=== PATIENT | female | born 1975 | race Caucasian/White ===

== ENCOUNTER 2018-05-03 07:03 | Outpatient (CLI) | payer BC ==
--- NOTE | 2018-05-03 09:28 | Ultrasound Report ---
Procedure Date: 05/03/2018 Accession Number: [id number] / [id number] Procedure: US - Abdomen Complete CPT Code: FULL RESULT: EXAM: Abdomen Complete DATE: 05/03/2018 8:26 AM CLINICAL HISTORY: UPPER ABDOMINAL PAIN COMPARISON: None. TECHNIQUE: Real-time scanning was performed with static images obtained. FINDINGS: Liver: Normal in size and echotexture. 14.4 cm. Main portal vein flow: Hepatopetal. Gallbladder: The patient is status post cholecystectomy. Biliary System: Common bile duct measures 7 mm. No intrahepatic or extrahepatic ductal dilatation. Pancreas: Visualized portion is unremarkable. Kidneys: Right: 10.0 cm longitudinally. Normal. No contour-deforming mass, stones, or hydronephrosis. Left: 9.9 cm longitudinally. Normal. No contour-deforming mass, stones, or hydronephrosis. Spleen: 9.0 cm. Normal in size and echotexture. Aorta and Inferior Vena Cava: Unremarkable. IMPRESSION: Changes of cholecystectomy. Otherwise, normal abdominal ultrasound. RADIA
== END 2018-05-03 07:04 | disposition home or self-care (01) ==
LOC: DI 07:03
PROVIDERS: ATTEND Specialist
DX: R10.10 Upper abdominal pain, unspecified (principal); Z90.49 Acquired absence of other specified parts of digestive tract
CPT/HCPCS: 76700

== ENCOUNTER 2018-06-22 08:00 | Outpatient (CLI) | payer BC | END 2018-06-22 23:59 | LOC: LAB.R 08:00 | PROVIDERS: ATTEND Obstetrics & Gynecology | DX: N76.0 Acute vaginitis (principal) | CPT/HCPCS: 87480; 87510; 87660 ==

== ENCOUNTER 2018-08-24 08:00 | Outpatient (CLI) | payer BC | END 2018-08-24 23:59 | disposition home or self-care (01) | LOC: LAB.R 08:00 | PROVIDERS: ATTEND Obstetrics & Gynecology | DX: N76.0 Acute vaginitis (principal) | CPT/HCPCS: 87480; 87491; 87510; 87591; 87660 ==

== ENCOUNTER 2018-09-18 11:38 | Outpatient (CLI) | payer BC | END 2018-09-18 11:39 | disposition home or self-care (01) | LOC: LAB.R 11:38 | PROVIDERS: ATTEND Obstetrics & Gynecology | DX: N77.1 Vaginitis, vulvitis and vulvovaginitis in diseases classified elsewhere (principal) | CPT/HCPCS: 87480; 87510; 87660 ==

== ENCOUNTER 2018-09-20 07:55 | Outpatient (CLI) | payer BC ==
[2018-09-20 12:51] LABS: HB2 TOTAL 14.8 g/dL; HEMOGLOBIN A1C 0.49 g/dL; HEMOGLOBIN A1C % 5.2 % (4.6-6.2)
[2018-09-20 12:59] LABS: THYROID STIMULATING HORMONE 1.37 uIU/mL (0.34-5.60)
[2018-09-20 13:01] LABS: FREE T4 (FREE THYROXINE) 0.74 ng/dL (0.58-1.64)
== END 2018-09-20 07:56 | disposition home or self-care (01) ==
LOC: LAB.N 07:55
PROVIDERS: ATTEND Obstetrics & Gynecology
DX: N77.1 Vaginitis, vulvitis and vulvovaginitis in diseases classified elsewhere (principal)
CPT/HCPCS: 36415; 82947; 83036; 84439; 84443

== ENCOUNTER 2018-11-06 08:00 | Outpatient (CLI) | payer BC | END 2018-11-06 23:59 | disposition home or self-care (01) | LOC: LAB.R 08:00 | PROVIDERS: ATTEND Obstetrics & Gynecology | DX: N77.1 Vaginitis, vulvitis and vulvovaginitis in diseases classified elsewhere (principal) | CPT/HCPCS: 87480; 87510; 87660 ==

== ENCOUNTER 2019-01-19 07:10 | Outpatient (CLI) | payer BC ==
--- NOTE | 2019-01-24 09:52 | Ultrasound Report ---
Reason: UNSPECIFIED ABDOMINAL PAIN Procedure Date: 01/19/2019 Accession Number: [id number] / [id number] Procedure: US - Abdomen Complete CPT Code: FULL RESULT: EXAM: ABDOMEN ULTRASOUND EXAM DATE: 01/19/2019 08:01 AM. CLINICAL HISTORY: Chronic abdominal pain x 9 years. COMPARISON: ABDOMEN COMPLETE 05/03/2018 7:29 AM. TECHNIQUE: Real-time scanning was performed with static images obtained. FINDINGS: Liver: Liver parenchyma is heterogeneous and mildly hyperechoic. No discrete liver masses or intrahepatic bile duct dilation. However, evaluation for masses is limited secondary to the echogenicity. Right liver measures 15.3 cm. Main portal vein flow: Hepatopetal. Gallbladder: Surgically absent. Biliary System: Common bile duct measures 7 mm. Mildly prominent common bile duct. No common bile duct stone. No intrahepatic bile duct dilation. Pancreas: Echogenic but otherwise unremarkable. No mass, calcification, ductal dilation or atrophy. Kidneys: Right: 10 cm longitudinally. No mass, stones or hydronephrosis. Mild pelviectasis. Normal echotexture. Left: 10 cm longitudinally. No mass, stones or hydronephrosis. Mild pelviectasis. Normal echotexture. Spleen: 8.4 cm. Normal in size and echotexture. Aorta and Inferior Vena Cava: Unremarkable. Other: None. IMPRESSION: 1. Mildly echogenic fatty liver. No mass. 3. Surgically absent gallbladder. Mildly prominent common bile duct without evidence of a stone or mass. No intrahepatic bile duct dilation. 3. Echogenic but otherwise unremarkable pancreas. RADIA
== END 2019-01-19 07:11 | disposition home or self-care (01) ==
LOC: DI 07:10
PROVIDERS: ATTEND Specialist
DX: K76.0 Fatty (change of) liver, not elsewhere classified (principal); Z90.49 Acquired absence of other specified parts of digestive tract; R10.9 Unspecified abdominal pain
CPT/HCPCS: 76700

== ENCOUNTER 2019-10-17 15:52 | Emergency (ER) | payer BC, MEDICAID ==
--- NOTE | 2019-10-17 16:25 | ED Physician Documentation ---
PD HPI ABD PAIN - Stated complaint Stated Complaint: ABD/BACK PX - Chief complaint Chief Complaint: Abd Pain - History obtained from History obtained from: Patient - History of Present Illness Timing - onset: Other (For about 10 years she is had waxing and waning left- sided abdominal pain radiating to the low mid back. It sounds like she is had fairly complete work-ups for this with some interesting findings. Ultrasound showed fatty liver. Is unclear if labs were abnormal. Remotely she had an upper endoscopy that was negative. Maybe 8 months ago per her she had a CAT scan done in [place], formal results are not available currently but per her description she may have had pelvic free fluid for which she followed up with her seasonal retail merchandiser who felt it was normal variant may be. Over the last 3 days this pain is worse than normal, it is fairly constant sharp, radiating from the low to mid abdomen to the mid back. Ever since she had her gallbladder out she often has loose stools, Does have some nausea. Declines pain medication on initial evaluation. Menses have become irregular and she thinks she is going through menopause.) Review of Systems Ten Systems: 10 systems reviewed and negative Constitutional: denies: Fever, Chills Cardiac: denies: Chest pain / pressure, Palpitations Respiratory: denies: Dyspnea, Cough GI: reports: Abdominal Pain, Nausea, Other (bloated). denies: Constipation PD PAST MEDICAL HISTORY - Present Medications Home Medications: Ambulatory Orders Medication Instructions Recorded Confirmed Dicyclomine [Bentyl] 20 mg PO QID PRN #15 capsule 10/17/19 - Allergies Allergies/Adverse Reactions: Allergies Allergy/AdvReac Type Severity Reaction Status Date / Time codeine Allergy Anxiety Verified 10/17/19 16:03 PD ED PE NORMAL - Vitals Vital signs reviewed: Yes - General General: Alert and oriented X 3, No acute distress - HEENT HEENT: PERRL, EOMI - Neck Neck: Supple, no meningeal sign, No bony TTP - Cardiac Cardiac: RRR, No murmur - Respiratory Respiratory: No respiratory distress, Clear bilaterally - Abdomen Abdomen: Non distended, Other (diminised bowel tones, NTTP) - Back Back: No CVA TTP, No spinal TTP - Derm Derm: Normal color, Warm and dry - Extremities Extremities: No edema, No calf tenderness / cord - Neuro Neuro: Alert and oriented X 3, Normal speech Results - Vitals Vitals: Vital Signs - 24 hr 10/17/19 16:03 Temperature 37.4 C Heart Rate 112 H Respiratory 17 Rate Blood Pressure 149/94 H O2 Saturation 100 Oxygen O2 Source Room air - Labs Labs: Laboratory Tests 10/17/19 10/17/19 10/17/19 16:43 16:43 16:43 WBC 11.1 H RBC 4.51 Hgb 12.9 Hct 40.6 MCV 90.0 MCH 28.6 MCHC 31.8 L RDW 12.6 Plt Count 250 MPV 9.3 Neut # (Auto) 8.1 H Lymph # (Auto) 2.3 [place] # (Auto) 0.5 Eos # (Auto) 0.1 Baso # (Auto) 0.1 Absolute Nucleated RBC 0.00 Nucleated RBC % 0.0 Sodium 137 Potassium 3.5 Chloride 101 Carbon Dioxide 27 Anion Gap 9.0 BUN 15 Creatinine 0.8 Estimated GFR (MDRD) 77 L Glucose 142 H Calcium 8.8 Total Bilirubin 0.3 AST 17 ALT 17 Alkaline Phosphatase 57 Total Protein 7.3 Albumin 4.0 Globulin 3.3 Albumin/Globulin Ratio 1.2 Lipase 28 Urine Color YELLOW Urine Clarity CLEAR Urine pH 6.5 Ur Specific [place] 1.020 Urine Protein NEGATIVE Urine Glucose (UA) NEGATIVE Urine Ketones NEGATIVE Urine Occult Blood LARGE H Urine Nitrite NEGATIVE Urine Bilirubin NEGATIVE Urine Urobilinogen 0.2 (NORMAL) Ur Leukocyte Esterase NEGATIVE Urine RBC 0-5 Urine WBC 0-3 Ur Squamous Epith Cells RARE Squamous Urine Bacteria None Seen Ur Microscopic Review INDICATED Urine Culture Comments NOT INDICATED Urine HCG, Qual NEGATIVE - Rads (name of study) Ct A/P Radiology: EMP read contemporaneously (normal) PD MEDICAL DECISION MAKING - ED course ED course: 44-year-old woman with an exacerbation of unexplained chronic abdominal pain without pertinent positive findings on CT imaging today. Follow-up was advised and we will trial some Bentyl in the interim. The closest diagnosis would be IBS. She is never had a colonoscopy though. Departure - Departure Disposition: Home, Self Care Clinical Impression: Abdominal pain Qualifiers: Abdominal location: left lower quadrant Qualified Code(s): R10.32 - Left lower quadrant pain Condition: Good Record reviewed to determine appropriate education?: Yes Instructions: ED Abdominal Pain Unkn Cause Prescriptions: Dicyclomine [Bentyl] 20 mg PO QID PRN #15 capsule PRN Reason: Abdominal Pain Comments: Your CAT scan is normal, I do not have a specific reason for your chronic abdominal pain. This may be related to irritable bowel syndrome, I would not stick to that diagnosis yet but it is reasonable to follow-up with your intermediate card tender for further evaluation and treatment. We will trial some medications commonly used for irritable bowel syndrome in the meantime.
[2019-10-17] MEDS ORDERED: IOVERSOL 320 100 ML VIAL IVP ONE ×2 (16:30→17:47)
[2019-10-17 16:50] LABS: BASOPHILS # (AUTO) 0.1 10^3/uL (0.0-0.1); BASOPHILS % (AUTO) 0.6 %; EOSINOPHILS # (AUTO) 0.1 10^3/uL (0.0-0.7); EOSINOPHILS % (AUTO) 0.5 %; HGB - HEMOGLOBIN 12.9 g/dL (12.0-16.0); LYMPHOCYTES # (AUTO) 2.3 10^3/uL (1.5-3.5); LYMPHOCYTES % (AUTO) 20.5 %; MEAN CORPUSCULAR HEMOGLOBIN 28.6 pg (27.0-31.0); MEAN CORPUSCULAR HGB CONC 31.8 g/dL (32.0-36.0); MEAN PLATELET VOLUME 9.3 fL (7.9-10.8); MONOCYTES # (AUTO) 0.5 10^3/uL (0.0-1.0); MONOCYTES % (AUTO) 4.7 %; NEUTROPHILS # (AUTO) 8.1 10^3/uL (1.5-6.6); NEUTROPHILS % (AUTO) 73.3 %; PLT - PLATELET COUNT 250 10^3/uL (130-450); RED BLOOD COUNT 4.51 10^6/uL (4.20-5.40); RED CELL DISTRIBUTION WIDTH 12.6 % (12.0-15.0); WHITE BLOOD COUNT 11.1 x10^3/uL (4.8-10.8)
[2019-10-17 16:51] LABS: BILIRUBIN,URINE NEGATIVE (NEGATIVE); GLUCOSE, URINE (UA) NEGATIVE (NEGATIVE); KETONES,URINE (UA) NEGATIVE (NEGATIVE); LEUKOCYTE ESTERASE, URINE NEGATIVE (NEGATIVE); NITRITE,URINE NEGATIVE (NEGATIVE); OCCULT BLOOD,URINE LARGE (NEGATIVE); PH,URINE 6.5 PH (5.0-7.5); PROTEIN,URINE NEGATIVE (NEGATIVE); UROBILINOGEN,URINE 0.2 (NORMAL) E.U./dL (NORMAL)
[2019-10-17 16:59] LABS: BACTERIA,URINE None Seen /HPF (None Seen); CLARITY,URINE CLEAR (CLEAR); HCG UR QUAL NEGATIVE; RBC,URINE 0-5 /HPF (0-5); SQUAMOUS EPITHELIAL CELL,UR RARE Squamous (<= Few)
[2019-10-17 17:06] LABS: ALBUMIN/GLOBULIN RATIO 1.2 (1.0-2.2); BILIRUBIN,TOTAL 0.3 mg/dL (0.2-1.0); CALCIUM 8.8 mg/dL (8.5-10.3); CREATININE 0.8 mg/dL (0.4-1.0); TOTAL PROTEIN 7.3 g/dL (6.7-8.2)
--- NOTE | 2019-10-17 18:05 | CT Report ---
Reason: IV only, LLQ pain Procedure Date: 10/17/2019 Accession Number: [id number] / [id number] Procedure: CT - Abdomen/Pelvis W CPT Code: Final Report FULL RESULT: EXAM: CT ABDOMEN AND PELVIS EXAM DATE: 10/17/2019 05:45 PM. CLINICAL HISTORY: Abdominal pain COMPARISONS: None. TECHNIQUE: Routine helical CT imaging was performed through the abdomen and pelvis. IV contrast: OPTI 320 90ML. Enteric contrast: No. Reconstructions: Coronal and sagittal. In accordance with CT protocol optimization, one or more of the following dose reduction techniques were utilized for this exam: automated exposure control, adjustment of mA and/or KV based on patient size, or use of iterative reconstructive technique. FINDINGS: Lung Bases: Unremarkable. Liver: Normal. No masses. Gallbladder/Bile Ducts: The gallbladder is surgically absent. There is no significant bile duct dilatation. Spleen: Normal. Pancreas: Normal. Adrenal Glands: Normal. Kidneys: Normal. No masses or hydronephrosis. Peritoneal Cavity/Bowel: No dilated or thick-walled bowel is seen. No enlarged mesenteric or retroperitoneal lymph nodes. There is trace free fluid within the pelvis. No intraperitoneal free air. The appendix is well visualized and normal. Pelvic Organs: Normal. The bladder and visualized pelvic organs are within normal limits. Vasculature: No aneurysms or other significant abnormality. Bones: No significant abnormality. Other: None. IMPRESSION: Negative contrast-enhanced CT of the abdomen and pelvis. No acute solid or hollow viscus organ abnormalities to account for the patient's abdominal pain. RADIA
[2019-10-17 18:41] VITALS: BP 139/80
== END 2019-10-17 18:41 | disposition home or self-care (01) ==
LOC: ED 15:52
DX: R10.32 Left lower quadrant pain (principal); G89.29 Other chronic pain; R11.0 Nausea; M54.5 Low back pain
CPT/HCPCS: 36415; 74177; 80053; 81001; 81025; 83690; 85025; 99284; Q9967; 81003; 87086

== ENCOUNTER 2020-08-03 17:44 | Emergency (ER) | payer MEDICAID ==
[2020-08-03] MEDS ORDERED: CEPHALEXIN 125 MG/5 ML SYRINGE PO STA (17:59)
--- NOTE | 2020-08-03 18:19 | ED Physician Documentation ---
History of Present Illness - Stated complaint Stated Complaint: LT TOOTH PX - Chief complaint Chief Complaint: Heent - History obtained from History obtained from: Patient, Family - History of Present Illness Timing: How many days ago (4) Pain level max: 8 Pain level now: 8 - Additonal information Additional information: 44-year-old female presents to the emergency department left dental pain. This been ongoing for the past several days. Worse with eating and drinking, nothing makes it better. She states that she called her dentist and was told that they are not seen patients in the office right now. She has had subjective fevers at home. No vomiting. No facial swelling or redness. Review of Systems Constitutional: reports: Fever. denies: Chills Nose: denies: Rhinorrhea / runny nose, Congestion Throat: denies: Sore throat Cardiac: denies: Chest pain / pressure Respiratory: denies: Cough GI: denies: Abdominal Pain, Nausea, Vomiting, Diarrhea Skin: denies: Rash Musculoskeletal: denies: Neck pain, Back pain Neurologic: denies: Headache PD PAST MEDICAL HISTORY - Past Medical History Past Medical History: Yes Cardiovascular: None Respiratory: None Neuro: None Endocrine/Autoimmune: None GI: Other CHINESE TEACHER: None : None HEENT: None Psych: None Musculoskeletal: None Derm: None - Past Surgical History General: Cholecystectomy /CHINESE TEACHER: section - Present Medications Home Medications: Ambulatory Orders Medication Instructions Recorded Confirmed Dicyclomine [Bentyl] 20 mg PO QID PRN #15 capsule 10/17/19 Cephalexin Suspension [Keflex] 500 mg PO QID 10 Days #1 bottle 08/03/20 - Allergies Allergies/Adverse Reactions: Allergies Allergy/AdvReac Type Severity Reaction Status Date / Time codeine Allergy Anxiety Verified 08/03/20 17:47 - Social History Does the pt smoke?: No Smoking Status: Never smoker Does the pt drink ETOH?: No Does the pt have substance abuse?: No - Immunizations Immunizations are current?: Yes PD ED PE NORMAL - Vitals Vital signs reviewed: Yes - General General: Alert and oriented X 3, No acute distress - HEENT HEENT: Moist mucous membranes, Other (poor dentition throughout. no drainable abscess. no facial swelling. no ludwigs angina. Normal phonation. No trismus.) - Neck Neck: Supple, no meningeal sign - Cardiac Cardiac: RRR - Respiratory Respiratory: No respiratory distress, Clear bilaterally - Derm Derm: Warm and dry - Neuro Neuro: Alert and oriented X 3 - Psych Psych: Normal mood, Normal affect Results - Vitals Vitals: Vital Signs - 24 hr 08/03/20 08/03/20 08/03/20 17:47 18:25 18:36 Temperature 36.5 C 36.8 C 36.8 C Heart Rate 118 H 87 81 Respiratory 16 18 18 Rate Blood Pressure 144/74 H 132/76 H 130/72 O2 Saturation 98 100 100 Oxygen O2 Source Room air PD MEDICAL DECISION MAKING - ED course Complexity details: considered differential, d/w patient ED course: Patient with dental caries. She states that she cannot swallow pills and request liquid antibiotics. This is provided to her. She is well-appearing, nontoxic. Afebrile. Tolerating p.o. without difficulty. Speaking normally. No evidence of Felipe's angina. We will have her follow-up closely with her dentist. Patient counseled regarding signs and symptoms for which I believe and urgent re-evaluation would be necessary. Patient with good understanding of and agreement to plan and is comfortable going home at this time This document was made in part using voice recognition software. While efforts are made to proofread this document, sound alike and grammatical errors may occur. Departure - Departure Disposition: 01 Home, Self Care Clinical Impression: Pain due to dental caries Condition: Good Instructions: ED Tooth Pain Follow-Up: your,dentist this week [Other] Prescriptions: Cephalexin Suspension [Keflex] 500 mg PO QID 10 Days #1 bottle Comments: Take all antibiotics until gone. Follow-up with your dentist for further care. Return if you worsen. Discharge Date/Time: 08/03/20 18:36
[2020-08-03 18:37] VITALS: BP 130/72
== END 2020-08-03 18:36 | disposition home or self-care (01) ==
LOC: ED 17:44
DX: K02.9 Dental caries, unspecified (principal)
CPT/HCPCS: 99282; 99284; A9270

== ENCOUNTER 2022-02-25 09:03 | Emergency (ER) | payer MEDICAID ==
[2022-02-25 09:31] LABS: BILIRUBIN,URINE NEGATIVE (NEGATIVE); GLUCOSE, URINE (UA) NEGATIVE (NEGATIVE); KETONES,URINE (UA) NEGATIVE (NEGATIVE); LEUKOCYTE ESTERASE, URINE NEGATIVE (NEGATIVE); NITRITE,URINE POSITIVE (NEGATIVE); OCCULT BLOOD,URINE SMALL (NEGATIVE); PROTEIN,URINE NEGATIVE (NEGATIVE); UROBILINOGEN,URINE 0.2 (NORMAL) E.U./dL (NORMAL)
--- NOTE | 2022-02-25 09:32 | ED Physician Documentation ---
PD HPI ABD PAIN - Stated complaint Stated Complaint: ABD PX - Chief complaint Chief Complaint: Abd Pain - History obtained from History obtained from: Patient - Additional information Additional information: 46-year-old woman with history of remote laparoscopic cholecystectomy and C- section presents with umbilical pain starting 2 nights ago. There are no changes in bowel movements. No nausea or vomiting. Pain does not change with eating. Pain is in the umbilicus and radiates to either side. Ancillary complaint of longstanding abdominal swelling associated with unintended weight gain of 30 pounds over 2 years. Has had ultrasonography and labs without pertinent positive findings. Review of Systems Ten Systems: 10 systems reviewed and negative Constitutional: denies: Fever, Chills Cardiac: denies: Chest pain / pressure, Palpitations Respiratory: denies: Dyspnea, Cough PD PAST MEDICAL HISTORY - Past Medical History Cardiovascular: None Respiratory: None Neuro: None Endocrine/Autoimmune: None GI: Other AUDIO VISUAL ARTS DIRECTOR: None : None HEENT: None Psych: None Musculoskeletal: None Derm: None - Past Surgical History General: Cholecystectomy /AUDIO VISUAL ARTS DIRECTOR: section - Present Medications Home Medications: Ambulatory Orders Medication Instructions Recorded Confirmed Dicyclomine [Bentyl] 20 mg PO QID PRN #15 capsule 10/17/19 Cephalexin Suspension [Keflex] 500 mg PO QID 10 Days #1 bottle 08/03/20 - Allergies Allergies/Adverse Reactions: Allergies Allergy/AdvReac Type Severity Reaction Status Date / Time codeine Allergy Anxiety Verified 02/25/22 09:25 - Social History Does the pt smoke?: No Smoking Status: Never smoker Does the pt drink ETOH?: No Does the pt have substance abuse?: No - Immunizations Immunizations are current?: Yes PD ED PE NORMAL - Vitals Vital signs reviewed: Yes - General General: Alert and oriented X 3, No acute distress - HEENT HEENT: PERRL, EOMI - Neck Neck: Supple, no meningeal sign, No bony TTP - Cardiac Cardiac: RRR, No murmur - Respiratory Respiratory: No respiratory distress, Clear bilaterally - Abdomen Abdomen: Normal bowel sounds, Soft, Other (Suggestion of a fatty umbilical hernia superiorly without skin changes or diffuse tenderness. Also a ventral hernia with sit up.) - Back Back: No CVA TTP, No spinal TTP - Derm Derm: Normal color, Warm and dry - Extremities Extremities: No edema, No calf tenderness / cord - Neuro Neuro: Alert and oriented X 3, Normal speech Results - Vitals Vitals: Vital Signs - 24 hr 02/25/22 02/25/22 09:18 10:00 Temperature 36.6 C Heart Rate 106 H 100 Respiratory 16 Rate Blood Pressure 154/96 H 137/76 H O2 Saturation 98 99 Oxygen O2 Source Room air - Labs Labs: Laboratory Tests 02/25/22 02/25/22 02/25/22 09:20 09:36 09:36 WBC 7.7 RBC 4.79 Hgb 14.1 Hct 42.6 MCV 88.9 MCH 29.4 MCHC 33.1 RDW 12.7 Plt Count 295 MPV 9.4 Neut # (Auto) 4.9 Lymph # (Auto) 2.2 [place] # (Auto) 0.4 Eos # (Auto) 0.1 Baso # (Auto) 0.1 Absolute Nucleated RBC 0.00 Nucleated RBC % 0.0 Sodium 136 Potassium 3.7 Chloride 101 Carbon Dioxide 26 Anion Gap 9.0 BUN 11 Creatinine 0.8 Estimated GFR (MDRD) 77 L Glucose 122 H Calcium 8.8 Total Bilirubin 0.8 AST 19 ALT 18 Alkaline Phosphatase 57 Total Protein 7.7 Albumin 4.0 Globulin 3.7 Albumin/Globulin Ratio 1.1 Lipase 27 TSH Urine Color YELLOW Urine Clarity HAZY Urine pH 7.0 Ur Specific [place] 1.020 Urine Protein NEGATIVE Urine Glucose (UA) NEGATIVE Urine Ketones NEGATIVE Urine Occult Blood SMALL H Urine Nitrite POSITIVE H Urine Bilirubin NEGATIVE Urine Urobilinogen 0.2 (NORMAL) Ur Leukocyte Esterase NEGATIVE Urine RBC 0-5 Urine WBC 0-3 Ur Squamous Epith Cells MOD Squamous H Urine Bacteria Many H Ur Microscopic Review INDICATED Urine Culture Comments NOT INDICATED Urine HCG, Qual NEGATIVE 02/25/22 09:36 WBC RBC Hgb Hct MCV MCH MCHC RDW Plt Count MPV Neut # (Auto) Lymph # (Auto) [place] # (Auto) Eos # (Auto) Baso # (Auto) Absolute Nucleated RBC Nucleated RBC % Sodium Potassium Chloride Carbon Dioxide Anion Gap BUN Creatinine Estimated GFR (MDRD) Glucose Calcium Total Bilirubin AST ALT Alkaline Phosphatase Total Protein Albumin Globulin Albumin/Globulin Ratio Lipase TSH 2.10 Urine Color Urine Clarity Urine pH Ur Specific [place] Urine Protein Urine Glucose (UA) Urine Ketones Urine Occult Blood Urine Nitrite Urine Bilirubin Urine Urobilinogen Ur Leukocyte Esterase Urine RBC Urine WBC Ur Squamous Epith Cells Urine Bacteria Ur Microscopic Review Urine Culture Comments Urine HCG, Qual PD MEDICAL DECISION MAKING - ED course ED course: 46-year-old woman presents with abdominal pain likely from her umbilical hernia based on exam. She required no pain medication here and her exam was very benign otherwise. Incidental findings on CT were discussed with her and the need for follow-up for all issues was impressed upon her with her at the bedside. Departure - Departure Disposition: 01 Home, Self Care Clinical Impression: Umbilical hernia Condition: Good Record reviewed to determine appropriate education?: Yes Follow-Up: Kashmir Pena MD [Provider Admit Priv/Credential] - (Call for an appointment regarding the hernia) [facility] [Provider Group] (Call for an appointment regarding the cervical mass) Comments: As discussed, the pain today is from the umbilical hernia which contains fat and no bowel. You should follow-up with the surgeon for that and one is listed on this form. We also discussed the incidental finding of the mass in the lower uterine segment/cervix. It is reassuring that you had a Pap smear a year and a half ago without abnormal findings but you do need to follow-up with gynecology, next available appointment for that to be discussed and further worked up as well. Return for new or worsening symptoms. Tylenol or ibuprofen as needed for the pain.
[2022-02-25 09:35] LABS: CLARITY,URINE HAZY (CLEAR); HCG UR QUAL NEGATIVE
[2022-02-25 09:42] LABS: BACTERIA,URINE Many /HPF (None Seen); RBC,URINE 0-5 /HPF (0-5); SQUAMOUS EPITHELIAL CELL,UR MOD Squamous (<= Few); WBC,URINE 0-3 /HPF (0-5)
[2022-02-25 09:47] LABS: BASOPHILS # (AUTO) 0.1 10^3/uL (0.0-0.1); EOSINOPHILS # (AUTO) 0.1 10^3/uL (0.0-0.7); HCT - HEMATOCRIT 42.6 % (37.0-47.0); HGB - HEMOGLOBIN 14.1 g/dL (12.0-16.0); LYMPHOCYTES # (AUTO) 2.2 10^3/uL (1.5-3.5); LYMPHOCYTES % (AUTO) 28.2 %; MEAN CORPUSCULAR HEMOGLOBIN 29.4 pg (27.0-31.0); MEAN CORPUSCULAR HGB CONC 33.1 g/dL (32.0-36.0); MEAN CORPUSCULAR VOLUME 88.9 fL (81.0-99.0); MEAN PLATELET VOLUME 9.4 fL (7.9-10.8); MONOCYTES # (AUTO) 0.4 10^3/uL (0.0-1.0); MONOCYTES % (AUTO) 5.5 %; NEUTROPHILS # (AUTO) 4.9 10^3/uL (1.5-6.6); PLT - PLATELET COUNT 295 10^3/uL (130-450); RED BLOOD COUNT 4.79 10^6/uL (4.20-5.40); RED CELL DISTRIBUTION WIDTH 12.7 % (12.0-15.0); WHITE BLOOD COUNT 7.7 x10^3/uL (4.8-10.8)
[2022-02-25 10:01] LABS: ALBUMIN/GLOBULIN RATIO 1.1 (1.0-2.2); BILIRUBIN,TOTAL 0.8 mg/dL (0.2-1.0); CALCIUM 8.8 mg/dL (8.5-10.3); CREATININE 0.8 mg/dL (0.4-1.0); POTASSIUM 3.7 mmol/L (3.5-5.0); TOTAL PROTEIN 7.7 g/dL (6.7-8.2)
[2022-02-25] MEDS ORDERED: IOPAMIDOL-300 100 ML VIAL ONE (10:34)
--- NOTE | 2022-02-25 11:00 | CT Report ---
PROCEDURE: Abdomen/Pelvis W INDICATIONS: IV only, abd pain, prob umbo hernia CONTRAST: IV CONTRAST: Isovue 300 ml: 100 PO CONTRAST: *NO PO CONTRAST TECHNIQUE: After the administration of intravenous contrast, 5 mm thick sections acquired from the diaphragms to the symphysis. 5 mm thick coronal and sagittal reformats were acquired. For radiation dose reducti on, the following was used: automated exposure control, adjustment of mA and/or kV according to foster ent size. COMPARISON: None. FINDINGS: Image quality: Excellent. ABDOMEN: Lung bases: Lung bases are clear. Heart size is normal. Solid organs: Liver and spleen are normal in size and enhancement. Diffuse fatty infiltration of the liver Gallbladder is surgically absent Biliary system is non dilated. Pancreas enhances normally. No adrenal nodules. Kidneys demonstrate normal size and enhancement, without hydronephrosis. Peritoneum and bowel: Bowel loops demonstrate normal wall thickness and caliber. No free fluid or a ir. The appendix is normal. Nodes and vessels: No retroperitoneal or mesenteric adenopathy by size criteria. Aorta and inferior vena cava are normal in size. Miscellaneous: Small fat-containing umbilical hernia. There is stranding involving herniated fat whic h could be due to compromised vascular supply. PELVIS: Genitourinary: Bladder wall thickness is normal. 3.3 cm in maximum diameter left adnexal cyst. 5.2 x 5.1 x 5.1 cm heterogeneously enhancing mass noted at the cervix/lower uterine segment. Miscellaneous: No inguinal hernias or adenopathy. Bones: No suspicious bony lesions. No vertebral body compression fractures. IMPRESSION: 1. Small fat-containing umbilical hernia. There is stranding in the herniated fat which could be due to infection or compromised vascular supply. 2. Large heterogeneously enhancing lower uterine segment/cervical mass. Recommend correlation with pe lvic exam and/or pelvic ultrasound. 3. No free intraperitoneal fluid or air. 4. Appendix is normal. 5. Hepatic steatosis. Reviewed by: Jessica Saldivar MD, PhD on 02/25/2022 10:59 AM PDT Approved by: Jessica Saldivar MD, PhD on 02/25/2022 10:59 AM PDT Station ID: [id number]
[2022-02-25 11:20] VITALS: BP 137/74
[2022-02-25] MEDS ORDERED: IOPAMIDOL-300 100 ML VIAL IVP ONE (12:03)
== END 2022-02-25 11:29 | disposition home or self-care (01) ==
LOC: ED 09:03
DX: K42.9 Umbilical hernia without obstruction or gangrene (principal)
CPT/HCPCS: 36415; 74177; 80053; 81001; 81025; 83690; 84443; 85025; 99282; 99284; Q9967; 81003; 87086

== ENCOUNTER 2022-03-18 22:22 | Outpatient (CLI) | payer MEDICAID ==
--- NOTE | 2022-03-19 15:30 | Ultrasound Report ---
PROCEDURE: Pelvic w/Transvaginal INDICATIONS: CERVICAL/LOWER UTERINE MASS TECHNIQUE: Real-time scanning was performed of the pelvic organs, with image documentation. Additional endovagi nal scanning was necessary due to incomplete visualization of the adnexal and endometrial structures by transabdominal scanning. COMPARISON: CT abdomen pelvis 02/25/2022 FINDINGS: Limited scanning through the kidneys shows no hydronephrosis. No pathologic free abdominal or pelvic fluid. Uterus: Uterus is enlarged size at 9.8 cm. The endometrium measures 9.8 mm in combined thickness. Nabothian cysts are noted appearing to correspond to area of abnormality on recent CT exam. Ovaries: Right ovary measures 2.3 x 1.4 x 2.0 cm, volume 3.4 cc. A focus of decreased echogenicity i s identified within the right ovary measuring 1.7 x 1.6 x 2.0 cm. Left ovary measures 1.7 x 1.6 x 2.5 cm, volume 3.5 cc. IMPRESSION: Mildly enlarged uterus. Simple right ovarian cyst. Reviewed by: Jyoti Villatoro MD on 03/19/2022 3:29 PM PDT Approved by: Jyoti Villatoro MD on 03/19/2022 3:29 PM PDT Station ID: [id number]
== END 2022-03-18 22:23 | disposition home or self-care (01) ==
LOC: DI 22:22
PROVIDERS: ATTEND Obstetrics & Gynecology
DX: N83.291 Other ovarian cyst, right side (principal); N85.2 Hypertrophy of uterus

== ENCOUNTER 2022-08-24 13:24 | Outpatient (CLI) | payer MEDICAID ==
--- NOTE | 2022-08-24 16:25 | Ultrasound Report ---
PROCEDURE: Pelvic w/Transvaginal INDICATIONS: CERVICAL CYSTS TECHNIQUE: Real-time scanning was performed of the pelvic organs, with image documentation. Additional endovagi nal scanning was necessary due to incomplete visualization of the adnexal and endometrial structures by transabdominal scanning. COMPARISON: Pelvic ultrasound 03/18/2022 FINDINGS: Uterus: Uterus is anteverted and normal in size at 10.0 x 3.5 x 5.6 cm. The myometrium is homogeneo us. The endometrium measures 4 mm in combined thickness. Multiple nabothian cysts are present as be fore. Ovaries: The right ovary measures 2.2 x 1.6 x 1.5 cm, with a calculated ovarian volume of 3 cc. The left ovary measures 2.1 x 1.1 x 1.0 cm, with a calculated ovarian volume of 4 cc. The ovaries have a normal sonographic appearance. Less than 12 follicles can be seen in each ovary. No adnexal ilya s are seen. Other: No pathologic free abdominal or pelvic fluid. IMPRESSION: 1. Multiple nabothian cysts present as before. 2. Otherwise unremarkable pelvic ultrasound. Reviewed by: Etienne Collazo MD on 08/24/2022 4:24 PM PDT Approved by: Etienne Collazo MD on 08/24/2022 4:24 PM PDT Station ID: [id number]
== END 2022-08-24 13:25 | disposition home or self-care (01) ==
LOC: DI 13:24
PROVIDERS: ATTEND Obstetrics & Gynecology
DX: N88.8 Other specified noninflammatory disorders of cervix uteri (principal)